=== PATIENT | female | born 1975 | race Caucasian/White ===

== ENCOUNTER 2020-01-08 19:15 | Emergency (ER) | payer OTHER ==
[2020-01-08 19:29] VITALS: TEMP 98.8; BMI 37.8
[2020-01-08 20:25] LABS: HCG,QUALITATIVE URINE Negative
[2020-01-08 21:14] LABS: EPITHELIAL CELLS RARE /hpf
[2020-01-08 21:17] LABS: BASO % 1.7 % (0-2.0); EOS % 0.7 % (0-4.5); HEMATOCRIT 41.6 % (32.4-45.2); HEMOGLOBIN 14.6 GM/dl (10.7-15.3); LYMPH % 26.5 % (8-40); MCH 29.7 pg (25.7-33.7); MCHC 35.2 g/dl (32.0-36.0); MEAN CELL VOLUME 84.4 fl (80-96); NEUT % 64.1 % (42.8-82.8); PLATELET COUNT 369 K/MM3 (134-434); RBC 4.93 M/mm3 (3.60-5.2); RDW 12.3 % (11.6-15.6); WHITE BLOOD COUNT 13.2 K/mm3 (4.0-10.8)
[2020-01-08 21:37] LABS: ALBUMIN 4.2 g/dl (3.4-5.0); BILIRUBIN,TOTAL 0.8 mg/dl (0.2-1); CALCIUM 9.6 mg/dl (8.5-10); CREATININE 0.6 mg/dl (0.55-1.3); POTASSIUM 5.1 mmol/L (3.5-5.1); TOT PROT 7.6 g/dl (6.4-8.2)
[2020-01-08] MEDS ORDERED: HYOSCYAMINE SULFATE 0.125 MG *ODT PO ONE (22:08)
[2020-01-08] MEDS ORDERED: HYOSCYAMINE SULFATE 0.125 MG *ODT ONE (22:12)
--- NOTE | 2020-01-08 22:15 | PDOC ---
Documentation entered by Salas Paz SCRIBE, acting as scribe for Arnaldo Mckeon MD. Arnaldo Mckeon MD: This documentation has been prepared by the Brandi yarbrough Xhesika, SCRIBE, under my direction and personally reviewed by me in its entirety. I confirm that the documentation accurately reflects all work, treatment, procedures, and medical decision making performed by me. History of Present Illness - General Chief Complaint: Pain Stated Complaint: "I have Pain in my lower abdomen to back" History Source: Patient Exam Limitations: No Limitations - History of Present Illness Initial Comments: 01/08/20 19:21 The patient is a 44-year-old woman with a significant past medical history of diverticulitis and colitis who presents to the ED for RLQ abdominal pain radiating to her R flank x3days. Patient describes her pain feels like "pressure " and cramping in nature. Pt states she had a normal BM yesterday and today. Pt states her symptoms are different from her previous diverticulitis. Pt denies ant nausea, vomiting, diarrhea or URI symptoms. Pt states she is sexually active with one single partner. Pt denies any vaginal bleeding, vaginal discharge or order. PAST MEDICAL HISTORY: diverticulitis and colitis FAMILY HISTORY: no pertinent history SOCIAL HISTORY: Pt lives with family and is employed. MEDICATIONS: reviewed ALLERGIES: As per nursing notes 01/08/20 22:06 Assessment and plan: This is a 44-year-old female who has history of diverticulitis who is status post a partial colon resection secondary to a perforation. Patient now comes in complaining of 1 day of lower abdominal pain and right-sided flank pain. Pain is crampy in nature with radiation to the right flank and back. Patient otherwise denies any nausea vomiting or diarrhea. Patient had a normal bowel movement yesterday and today. Patient denies any fevers. Work-up was done including CBC, comp urine urine test and A CAT scan to rule out kidney stones or any acute intra-abdominal or pelvic pathology. CAT scan was negative for any acute pathology did show some chronic pathology that was visible on prior scans. Patient was given a copy of the CAT scan and discussed the findings with her. Patient will follow-up with her primary care doctor. I also gave her some hyoscyamine and a prescription was sent to her pharmacy Past History - Medical History Allergies/Adverse Reactions: Allergies Allergy/AdvReac Type Severity Reaction Status Date / Time Penicillins Allergy Intermediate Rash Verified 01/08/20 19:30 shellfish derived Allergy Swelling Verified 12/20/15 09:25 Home Medications: Ambulatory Orders Pantoprazole Sodium [Protonix] 40 mg PO DAILY #30 tablet. 10/01/15 Mv-Mins/Folic Acid/Guarana/Caf [One Daily Tablet] 1 tab PO DAILY 05/03/16 Hyoscyamine Odt [Levsin Odt -] 0.125 mg PO DAILY #7 tab.rapdis 01/08/20 Anemia: No Asthma: No Cancer: No Cardiac Disorders: No CVA: No COPD: No CHF: No Dementia: No Diabetes: No GI Disorders: Yes (DIVERTICULITIS,COLITIS) Disorders: Yes (KIDNEY STONE) HTN: No Hypercholesterolemia: No Liver Disease: No Seizures: No Thyroid Disease: No - Surgical History Abdominal Surgery: No Appendectomy: No Cardiac Surgery: No Cholecystectomy: No Lung Surgery: No Neurologic Surgery: No Orthopedic Surgery: No - Immunization History Td Vaccination: Yes Immunization Up to Date: Yes - Psycho-Social/Smoking History Smoking Status: No Smoking History: Never smoked Years of Tobacco Use: 0 Number of Cigarettes Smoked Daily: 0 Cigars Per Day: 0 Review of Systems - Review of Systems Able to Perform ROS?: Yes Comments:: 01/08/20 19:22 General: No fevers or chills, no weakness, no weight loss HEENT: No change in vision. No sore throat,. No ear pain CardioVascular: No chest pain or shortness of breath Respiratory:No cough, or wheezing. Gastrointestinal: no nausea, vomiting, diarrhea or constipation, No rectal bleeding Genitourinary: No dysuria, hematuria, or frequency Musculoskeletal: +RLQ abdominal pain. +R flank pain Neurologic: No headache, vertigo, dizziness or loss of consciousness Psychiatric: nor depression Skin: No rashes or easy bruising Endocrine: no increased thirst or abnormal weight change Allergic: no skin or latex allergy All other systems reviewed and normal *Physical Exam - Physical Exam 01/08/20 19:22 General: Well-nourished well-developed individual, no acute distress HEENT: Throat: Normal, tonsils normal, no erythema or exudate Neck: Supple, no meningeal signs, no lymphadenopathy Eyes::Pupils equal reactive and round, extraocular motion intact Chest: Nontender to palpation Cardiac: S1-S2 normal, regular rate and rhythm, no murmurs rubs or gallops Respiratory: Lungs clear to auscultation bilateral Abdomen: + R CVA tenderness. +R flank tenderness. +RLQ tenderness to palpation. Soft, nondistended, normal bowel sounds, No guarding, No rebound. Extremities: Warm, dry, no cyanosis, clubbing, or edema Skin: No rashes Neuro: Alert and oriented x3, nonfocal exam, grossly intact, normal gait Psych: Normal mood and affect ED Treatment Course - LABORATORY CBC & Chemistry Diagram: 01/08/20 21:13 01/08/20 20:02 Discharge - Discharge Information Problems reviewed: Yes Clinical Impression/Diagnosis: Right flank pain Abdominal pain Qualifiers: Abdominal location: right lower quadrant Qualified Code(s): R10.31 - Right lower quadrant pain Condition: Stable Disposition: HOME - Admission No - Follow up/Referral Referrals: Lois Miranda MD [Primary Care Provider] - - Patient Discharge Instructions Additional Instructions: I sent a prescription to your pharmacy for a antispasmodic medicine that you can take once a day for the crampy abdominal pain. Follow-up your blood pressure with your primary care doctor as it was a little elevated here in the emergency department. If you are not improved in 2 to 3 days follow-up with your primary care doctor. Return to the emergency department immediately with ANY new, persistent or worsening symptoms. Continue any medications as previously prescribed by your physician. You should follow up with your primary doctor as soon as possible regarding today's emergency department visit. . Please make sure your doctor reviews the results of your emergency evaluation. Thank you for coming to the Emergency Department today for your care. It was a pleasure to see you today. Please note that your evaluation is INCOMPLETE until you follow-up with your doctor. - Post Discharge Activity
[2020-01-08 22:21] VITALS: BP 160/116; PULSE 87
== END 2020-01-08 22:23 | disposition home or self-care (01) ==
LOC: FER 19:15 → SUPCPDRO 19:15 → FER 22:23
DX: R10.31 Right lower quadrant pain (principal)
CPT/HCPCS: 36415; 74176-TC; 80053; 81003; 81015; 84703; 85025; 99285-25